=== PATIENT | female | born 1975 | race American Indian/Alaskan Native ===

== ENCOUNTER 2021-09-07 23:12 | Emergency (ER) | payer OTHER ==
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
[2021-09-08] MEDS ORDERED: IBUPROFEN 400 MG TAB PO ONE (02:12)
[2021-09-08] MEDS ORDERED: ACETAMINOPHEN 325 MG TAB PO ONE (02:12)
[2021-09-08 03:47] VITALS: BP 120/68
== END 2021-09-08 03:44 | disposition home or self-care (01) ==
LOC: ED 23:12
DX: S13.4XXA Sprain of ligaments of cervical spine, initial encounter (principal); V89.2XXA Person injured in unspecified motor-vehicle accident, traffic, initial encounter; Y93.89 Activity, other specified; Y92.89 Other specified places as the place of occurrence of the external cause; Y99.8 Other external cause status
CPT/HCPCS: 99282